=== PATIENT | female | born 1965 | race Caucasian/White ===

== ENCOUNTER 2020-08-13 20:14 | Emergency (ER) | payer BC ==
[~2020-08-13] VITALS: Ht 172.7 cm; Wt 115.7 kg
[~2020-08-13 20:14] MED LIST: Z.0.LEVAQUIN500 MG PO; Z.0.NORCO 10-325 T1 PO; Z.0.PRILOSEC OTC20 M PO
[2020-08-13] MEDS ORDERED: TRAMADOL HCL 50 MG TAB ONE (20:59)
[2020-08-13] MEDS ORDERED: TRAMADOL HCL 50 MG TAB PO ONE (21:00)
[2020-08-13] MEDS ORDERED: ULTRAM50 MG PO (21:32)
== END 2020-08-13 23:15 | disposition home or self-care (01) ==
LOC: ER 20:41
DX: S83.91XA Sprain of unspecified site of right knee, initial encounter (principal); W01.0XXA Fall on same level from slipping, tripping and stumbling without subsequent striking against object, initial encounter; Y93.01 Activity, walking, marching and hiking; Y92.008 Other place in unspecified non-institutional (private) residence as the place of occurrence of the external cause; I10 Essential (primary) hypertension; E11.9 Type 2 diabetes mellitus without complications
CPT/HCPCS: 99283